=== PATIENT | female | born 1995 ===

== ENCOUNTER 2017-04-14 09:00 | Emergency (ER) | payer MEDICAID ==
[2017-04-14 09:07] VITALS: BP 129/84; PULSE 84; RESP 18; TEMP 97.8; O2SAT 100
[2017-04-14 09:34] LABS: SQUAMOUS EPITHIAL 4 /hpf (0-5); URINE BILIRUBIN NEGATIVE (NEGATIVE); URINE BLOOD 3+ (NEGATIVE); URINE CLARITY Hazy (Clear); URINE COLOR Yellow (YELLOW); URINE GLUCOSE (UA) NORMAL (Normal); URINE LEUKOCYTE ESTERASE TRACE Leu/uL (Negative); URINE NITRATE NEGATIVE (NEGATIVE); URINE PROTEIN 1+ mg/dL (NEGATIVE); URINE UROBILINOGEN NORMAL mg/dL (0.2-1.0)
--- NOTE | 2017-04-14 09:37 | C.PDOC ---
History Of Present Illness 21 year old female with no significant PMHx presents to the ED with complaints of abdominal cramping and vaginal bleeding since this morning. Patient describes bleeding as bright red blood. Patient is and states she had a test that was positive 4 days prior. Patient's LMP was 03/13/2017 and is seeking [employer]E [employer]EL[employer] follow up in the [facility]. Patient has not taken pain medication, injury, nausea, vomiting, fever, chills, or other complaints at this time. Time Seen by Provider: 04/14/17 09:13 Chief Complaint (Nursing): Female Genitourinary History Per: Patient History/Exam Limitations: no limitations Onset/Duration Of Symptoms: Hrs Current Symptoms Are (Timing): Still Present Quality Of Discomfort: Cramping Associated Symptoms: denies: Fever, Chills, Nausea, Vomiting, Diarrhea, Urinary Symptoms Alleviating Factors: None Recent travel outside of the [place]: No Abnormal Vaginal Bleeding: Yes Last Menstral Period: 03/13/2017 : 2 Para: 2 Miscarriage: 0 Past Medical History Reviewed: Historical Data, Nursing Documentation, Vital Signs Vital Signs: Last Vital Signs Temp 97.8 F 04/14/17 09:05 Pulse 84 04/14/17 09:05 Resp 18 04/14/17 10:19 BP 129/84 04/14/17 09:05 Pulse Ox 100 04/14/17 09:38 Family History: States: Unknown Family Hx - Social History Hx Alcohol Use: No Hx Substance Use: No Review Of Systems Constitutional: Negative for: Fever, Chills Cardiovascular: Negative for: Chest Pain, Palpitations Respiratory: Negative for: Cough, Shortness of Breath Gastrointestinal: Positive for: Abdominal Pain. Negative for: Nausea, Vomiting , Diarrhea Genitourinary: Positive for: Vaginal Bleeding Musculoskeletal: Negative for: Back Pain Physical Exam - Physical Exam Appears: Non-toxic, No Acute Distress Skin: Warm, Dry, No Rash Head: Atraumatic, Normacephalic, No Tenderness Eye(s): bilateral: Normal Inspection, PERRL, EOMI Oral Mucosa: Moist Neck: Supple Chest: Symmetrical, No Deformity, No Tenderness Cardiovascular: Rhythm Regular, No Murmur Respiratory: No Rales, No Rhonchi, No Wheezing, Other (clear to auscultation bilaterally ) Gastrointestinal/Abdominal: Soft, No Tenderness, No Distention, No Guarding, No Rebound Back: No CVA Tenderness Pelvic: Normal External Exam, Vaginal Bleeding (consistent with menstrual cycle ), No Cervical Motion Tenderness, No Cervix Open, No Adnexal Tenderness Extremity: Normal ROM, No Tenderness Neurological/Psych: Oriented x3 ED Course And Treatment O2 Sat by Pulse Oximetry: 100 (RA) Pulse Ox Interpretation: Normal Progress Note: UA and UPreg were ordered. Medical Decision Making Medical Decision Making: test was negative and inform patient of result. Patient advised to take Tylenol or Motrin for any cramping pain associated with menstruation and can still follow up with tankage grinder Disposition Counseled Patient/Family Regarding: Diagnosis - Disposition [facility] Disposition: HOME/ ROUTINE Disposition Time: 09:34 Condition: STABLE Additional Instructions: Your test was negative Take Tylenol or Advil for any cramps associated with menstruation Follow up with your tankage grinder Instructions: Menstruation (ED) Forms: [employer] (Wallisian) - POA Present On Arrival: None - Clinical Impression Clinical Impression: Negative test - PA / CONTRACTING SPECIALIST / Resident Statement MD/DO has reviewed & agrees with the documentation as recorded. - Scribe Statement The provider has reviewed the documentation as recorded by the Scribe Марина Shay All medical record entries made by the Elizabethibella were at my direction and personally dictated by me. I have reviewed the chart and agree that the record accurately reflects my personal performance of the history, physical exam, medical decision making, and the department course for this patient. I have also personally directed, reviewed, and agree with the discharge instructions and disposition.
== END 2017-04-14 10:19 | disposition home or self-care (01) ==
LOC: C.ER 09:00
DX: Z32.02 Encounter for pregnancy test, result negative (principal)